=== PATIENT | female | born 1960 | race Caucasian/White ===

== ENCOUNTER 2017-11-30 11:54 | Outpatient (CLI) | payer BC | END 2017-11-30 11:55 | disposition home or self-care (01) | LOC: BICMAMMO 11:54 | PROVIDERS: ATTEND Family Medicine | DX: Z12.31 Encounter for screening mammogram for malignant neoplasm of breast (principal); Z80.3 Family history of malignant neoplasm of breast | CPT/HCPCS: 77063; 77067 ==

== ENCOUNTER 2018-10-24 13:56 | Outpatient (CLI) | payer BC ==
--- NOTE | 2018-10-24 14:06 | RAD ---
Chest 2 views HISTORY: Cough. FINDINGS: Cardiac silhouette and pulmonary vasculature are unremarkable. Mediastinum is midline with postoperative changes of the cervical spine evident. No confluent airspace consolidation, pneumothorax, or pleural fluid are apparent. IMPRESSION: No active cardiopulmonary abnormalities are demonstrated.
== END 2018-10-24 13:57 | disposition home or self-care (01) ==
LOC: RAD-FRANK 13:56
PROVIDERS: ATTEND Nurse Practitioner Family
DX: R05 Cough (principal); Z20.89 Contact with and (suspected) exposure to other communicable diseases
CPT/HCPCS: 71046

== ENCOUNTER 2025-01-03 07:38 | Day surgery (SDC) | payer OTHER, SELFPAY ==
[2025-01-01 12:27] VITALS: BMI 31.8
[2025-01-03] MEDS ORDERED: Ondansetron PF 4 MG/2 ML Vial ONE (09:51)
[2025-01-03] MEDS ORDERED: Lidocaine 1% PF 5 ML VIAL ONE (09:51)
[2025-01-03] MEDS ORDERED: PROPOFOL 20 ML ONE (09:51)
[2025-01-03] MEDS ORDERED: PHENYLEPHRINE-NS 100 MCG/ML 10 ML SYRINGE ONE (10:34)
== END 2025-01-03 13:00 | disposition home or self-care (01) ==
LOC: SDC 07:38
PROVIDERS: ATTEND Orthopaedic Surgery
PROC: 0JBJ0ZZ Excision of Right Hand Subcutaneous Tissue and Fascia, Open Approach (ICD-10-PCS; principal; 2025-01-03)
DX: D18.01 Hemangioma of skin and subcutaneous tissue (principal); I10 Essential (primary) hypertension; E78.5 Hyperlipidemia, unspecified; K21.9 Gastro-esophageal reflux disease without esophagitis; Z90.710 Acquired absence of both cervix and uterus; Z91.041 Radiographic dye allergy status; Z88.1 Allergy status to other antibiotic agents; Z88.8 Allergy status to other drugs, medicaments and biological substances; Z88.5 Allergy status to narcotic agent; Z79.890 Hormone replacement therapy; Z79.899 Other long term (current) drug therapy
CPT/HCPCS: 88305; A6223; J0665; J1100; J2250; J2405; J2550; J2704; J3010; J3490